=== PATIENT | female | born 1990 | race African-American/Black ===

== ENCOUNTER 2016-12-01 07:03 | Emergency (ER) | payer OTHER ==
[~2016-12-01] VITALS: Ht 162.6 cm; Wt 63.5 kg
[2016-12-01 07:10] VITALS: BP 119/79
[2016-12-01] MEDS ORDERED: AMOX500C PO (07:46)
[2016-12-01] MEDS ORDERED: FLON1SPR (07:46)
[2016-12-01] MEDS ORDERED: MUCI600T34 PO (07:46)
== END 2016-12-01 07:57 | disposition home or self-care (01) ==
LOC: M ED 07:33
DX: J01.90 Acute sinusitis, unspecified (principal)

== ENCOUNTER 2017-01-24 21:09 | Emergency (ER) | payer OTHER ==
[~2017-01-24] VITALS: Ht 162.6 cm; Wt 70.9 kg
[2017-01-24 21:09] VITALS: BP 129/89
[~2017-01-24 21:09] MED LIST: AMOX500C PO; FLON1SPR; MUCI600T37 PO
[2017-01-24] MEDS ORDERED: PRED20TA PO (21:24)
[2017-01-24] MEDS ORDERED: INDO25CA PO (21:26)
[2017-01-24] MEDS ORDERED: dexameTHASONE 4 MG/ML 1ML VIAL (J1100) PO ONE (21:30)
[2017-01-24] MEDS ORDERED: guaiFENesin/CODEINE SYRUP 5 ML UDC PO ONE (21:30)
[2017-01-24] MEDS ORDERED: INDOMETHACIN 25 MG CAP PO ONE (21:30)
== END 2017-01-24 21:52 | disposition home or self-care (01) ==
LOC: M ED 21:41
DX: R59.0 Localized enlarged lymph nodes (principal)
CPT/HCPCS: 99282; J1100